=== PATIENT | female | born 1970 | race Caucasian/White ===

== ENCOUNTER → 2019-10-29 | Outpatient (REF) ==
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
== END ==
LOC: OCC 14:34
PROVIDERS: ATTEND Nurse Practitioner Family
DX: S72.432A Displaced fracture of medial condyle of left femur, initial encounter for closed fracture (principal); X58.XXXA Exposure to other specified factors, initial encounter
CPT/HCPCS: 73562

== ENCOUNTER → 2019-11-01 | Outpatient (REF) ==
--- NOTE | 2019-11-01 15:23 | Diagnostic Imaging Report ---
EXAMINATION: Magnetic resonance imaging of the left knee without intravenous contrast DATE: November 01, 2019. COMPARISON: Left knee radiographs October 29, 2019. INDICATION: 49-year-old female, left knee pain after recent fall. TECHNIQUE: Multiplanar, multisequence non contrast enhanced MR imaging was accomplished. FINDINGS: MENISCI: There is signal in the medial meniscus not meeting MRI criteria for tear. The lateral meniscus is intact. LIGAMENTS AND TENDONS: The anterior cruciate ligament is intact. There is abnormal thickening and distortion of contour of the posterior cruciate ligament likely relating to a partial tear of the posterior cruciate ligament. There is thickening of the superficial component of the medial collateral ligament complex consistent with sequela of prior injury. There is no current tear of the medial collateral ligament complex. The iliotibial band, mid third lateral capsular ligament, fibular collateral ligament, biceps femoris tendon and conjoined tendon are intact. The quadriceps tendon and patella ligament are intact. JOINT: There is mild to moderate thinning of the cartilage of the lateral patellar facet. The medial and lateral compartment cartilage appears grossly intact. There is no knee joint effusion, prominent synovitis, or intra-articular body. BONE: There is unremarkable bone marrow signal. Specifically, negative for fracture, osteomyelitis, osteonecrosis, or marrow replacing process. BURSAE AND SOFT TISSUES: There is a small partially ruptured Mills's cyst. There is nonspecific prepatellar subcutaneous edema. IMPRESSION: 1. Intact medial and lateral meniscus. 2. Intact anterior cruciate ligament. Partial tear of the posterior cruciate ligament. 3. Remote prior injury of the medial collateral ligament. 4. Mild to moderate patellofemoral compartment osteoarthritis. No large knee joint effusion. 5. No acute fracture, bone contusion, or evidence of osteonecrosis. 6. Partially ruptured Mills's cyst. Dictated by: Dictated on workstation # [id number]
== END | disposition home or self-care (01) ==
LOC: OCC 12:23
PROVIDERS: ATTEND Nurse Practitioner Family
CPT/HCPCS: 73721

== ENCOUNTER → 2019-11-12 | Outpatient (CLI) | payer OTHER | LOC: ORTHO 08:42 | PROVIDERS: ATTEND Orthopaedic Surgery | DX: S83.412A Sprain of medial collateral ligament of left knee, initial encounter (principal); M13.862 Other specified arthritis, left knee; I10 Essential (primary) hypertension; E66.9 Obesity, unspecified; Z87.81 Personal history of (healed) traumatic fracture; Z72.0 Tobacco use; Z90.89 Acquired absence of other organs; Z98.890 Other specified postprocedural states | CPT/HCPCS: 99203 ==

== ENCOUNTER 2019-12-18 19:56 | Observation (INO) | payer SELFPAY ==
[~2019-12-18] VITALS: Ht 152 cm; Wt 88.4 kg
[2019-12-18] VITALS (7 sets, daily range): BP systolic 132–153; BP diastolic 75–98
[2019-12-18] MEDS ORDERED: LACTATED RINGERS 1,000 ML IV ONE (20:30)
[2019-12-18 20:38] LABS: BASOPHILS % (AUTO) 1 % (0-10); EOSINOPHILS # (AUTO) 0.2 10^3/uL (0.0-0.3); EOSINOPHILS % (AUTO) 2 % (0-10); HEMATOCRIT 38 % (35-52); HEMOGLOBIN 12.7 G/DL (11.5-16.0); LYMPHOCYTES # (AUTO) 4.8 X 10^3 (1.0-4.0); LYMPHOCYTES % (AUTO) 58 % (12-44); MEAN CORPUSCULAR HEMOGLOBIN 33 PG (25-34); MEAN CORPUSCULAR HGB CONC 33 G/DL (32-36); MEAN CORPUSCULAR VOLUME 98 FL (80-99); MEAN PLATELET VOLUME 8.8 FL (7.4-10.4); MONOCYTES # (AUTO) 0.3 X 10^3 (0.0-1.0); MONOCYTES % (AUTO) 4 % (0-12); NEUTROPHILS # (AUTO) 2.9 X 10^3 (1.8-7.8); NEUTROPHILS % (AUTO) 35 % (42-75); PLATELET COUNT 363 10^3/uL (130-400); RED CELL DISTRIBUTION WIDTH 12.9 % (10.0-14.5); WHITE BLOOD COUNT 8.3 10^3/uL (4.3-11.0)
--- NOTE | 2019-12-18 20:42 | ED Psychosocial ---
General Chief Complaint: Suicidal Ideation Risk Stated Complaint: SI Source: patient (EXTREMELY DIFFICULT HISTORIAN) Exam Limitations: intoxication History of Present Illness Date Seen by Provider: Dec 18, 2019 Time Seen by Provider: 20:18 Initial Comments PT ARRIVES VIA EMS FROM HOME--PT AMBULATES INTO ER FROM THE AMBULANCE ON HER OWN, WITHOUT DIFFICULTY, LAUGHING AND SMILING AND TALKING. PT STATES "I DIDN'T WANT TO COME TO THE EMERGENCY ROOM" STATES "I TALKED TO MY THERAPIST TODAY" --PT STATES THAT HER THERAPIST CALLED EMS PT STATES "I TOLD HER I HADN'T BEEN SOBER, AND SHE TOLD ME I NEEDED MEDICAL DETOX, AND SHE CALLED SOMEONE AND THEY COULDN'T GET ME IN BECAUSE OF THE COVID STUFF, SO THEN I SAID SCREW IT-I'LL JUST END IT NOW, AND I TOLD HER I WAS GOING TO TAKE ALL THE MEDICINE I HAD AND ALL MY OLD MEDICINE--I'LL JUST END IT NOW" THEN THERAPIST CALLED EMS, ACCORDING TO PT. PT IS NOT VOICING THOSE THREATS AT THIS TIME, AND DOES NOT MENTION ANY OTHER SUICIDAL THOUGHTS FOR REMAINDER OF STAY. PT STATES SHE HAS LONGSTANDING ALCOHOL ABUSE AND DRINKS AT LEAST A FIFTH OF HARD LIQUOR A DAY, INCLUDING TODAY STATES SHE WAS IN [facility] LAST SUMMER FOR ALCOHOL ABUSE, AND GOT OUT AROUND , AND THEN [facility] AND WAS THERE UNTIL AUGUST 28, 2019. STATES SHE WAS SOBER FOR ABOUT 6 MONTHS, BUT THEN IMMEDIATELY STARTED DRINKING AGAIN, LITERALLY THE MINUTE SHE GOT OUT OF [facility]" AND HAS CONTINUED TO DRINK EVERY DAY SINCE THEN PCP: [facility] Allergies and Home Medications Allergies Coded Allergies: Penicillins (Verified Allergy, Unknown, 12/18/19) Patient Home Medication List Home Medication List Reviewed: Yes Review of Systems Constitutional: no symptoms reported EENTM: no symptoms reported Respiratory: no symptoms reported Cardiovascular: no symptoms reported Gastrointestinal: no symptoms reported Genitourinary: no symptoms reported : No (LMP 5-6 YEARS AGO) Control/STD Prophylaxis: None Musculoskeletal: no symptoms reported Skin: no symptoms reported Psychiatric/Neurological: See HPI Past [id number] Hx Patient Social History Alcohol Use: Regular Use (1/5 OR MORE OF HARD LIQUOR A DAY) Alcohol Beverage of Choice: Other (HARD LIQUOR) Recreational Drug Use: Yes (THC) Drug of Choice: THC Smoking Status: Current Everyday Smoker (1 PPD) Type Used: Cigarettes (1 PPD) Past Medical History Surgeries: No Respiratory: No Cardiac: Yes (WAS ON BP MEDICATION WHILE IN [facility]-NOT FOLLOWED UP WITH ANYONE SINCE) Hypertension Neurological: No DIRECTOR OF REHABILITATIVE SERVICES History: Menopausal Genitourinary: No Gastrointestinal: No Musculoskeletal: No Endocrine: No HEENT: No Cancer: No Psychosocial: Yes (SUBSTANCE ABUSE) Integumentary: No Blood Disorders: No Physical Exam Capillary Refill : Height, Weight, BMI Height: '" Weight: lbs. oz. kg; BMI Method: General Appearance: WD/WN, no apparent distress, other (SMILING, TALKS NON- STOP. SPEECH SLIGHTLY SLURRED. ) HEENT: PERRL/EOMI Neck: normal inspection Respiratory: normal breath sounds, no respiratory distress, no accessory muscle use Cardiovascular: regular rate, rhythm, no murmur Gastrointestinal: non tender, soft Extremities: normal inspection, normal capillary refill Neurologic/Psychiatric: talent acquisition project manager II-XII nml as tested, no motor/sensory deficits, alert, normal mood/affect, oriented x 3 Appearance/Memory: no memory impairment Behavior/Eye Contact: cooperative Thoughts/Hallucinations: no apparent hallucination Skin: normal color, warm/dry, other (NO EXTERNAL EVIDENCE OF TRAUMA) Progress/Results/Core Measures Results/Orders Lab Results Laboratory Tests Test 12/18/19 20:25 12/18/19 20:39 Range/Units White Blood Count 8.3 4.3-11.0 10^3/uL Red Blood Count 3.88 L 4.35-5.85 10^6/uL Hemoglobin 12.7 11.5-16.0 G/DL Hematocrit 38 35-52 % Mean Corpuscular Volume 98 80-99 FL Mean Corpuscular Hemoglobin 33 25-34 PG Mean Corpuscular Hemoglobin Concent 33 32-36 G/DL Red Cell Distribution Width 12.9 10.0-14.5 % Platelet Count 363 130-400 10^3/uL Mean Platelet Volume 8.8 7.4-10.4 FL Neutrophils (%) (Auto) 35 L 42-75 % Lymphocytes (%) (Auto) 58 H 12-44 % Monocytes (%) (Auto) 4 0-12 % Eosinophils (%) (Auto) 2 0-10 % Basophils (%) (Auto) 1 0-10 % Neutrophils # (Auto) 2.9 1.8-7.8 X 10^3 Lymphocytes # (Auto) 4.8 H 1.0-4.0 X 10^3 Monocytes # (Auto) 0.3 0.0-1.0 X 10^3 Eosinophils # (Auto) 0.2 0.0-0.3 10^3/uL Basophils # (Auto) 0.0 0.0-0.1 10^3/uL Sodium Level 146 H 135-145 MMOL/L Potassium Level 3.6 3.6-5.0 MMOL/L Chloride Level 117 H 98-107 MMOL/L Carbon Dioxide Level 18 L 21-32 MMOL/L Anion Gap 11 5-14 MMOL/L Blood Urea Nitrogen 11 7-18 MG/DL Creatinine 0.79 0.60-1.30 MG/DL Estimat Glomerular Filtration Rate > 60 BUN/Creatinine Ratio 14 Glucose Level 89 70-105 MG/DL Calcium Level 7.6 L 8.5-10.1 MG/DL Corrected Calcium 7.7 L 8.5-10.1 MG/DL Magnesium Level 2.2 1.6-2.4 MG/DL Total Bilirubin 0.1 0.1-1.0 MG/DL Aspartate Amino Transf (AST/SGOT) 15 5-34 U/L Alanine Aminotransferase (ALT/SGPT) 13 0-55 U/L Alkaline Phosphatase 61 40-136 U/L Total Protein 6.4 6.4-8.2 GM/DL Albumin 3.9 3.2-4.5 GM/DL Amylase Level 56 25-125 U/L Lipase 54 8-78 U/L TSH [place] Testing 2.48 0.35-4.94 UIU/ML Serum Test, Qualitative NEGATIVE NEGATIVE Salicylates Level < 5.0 L 5.0-20.0 MG/DL Acetaminophen Level < 10 L 10-30 UG/ML Serum Alcohol 321 *H <10 MG/DL Urine Color YELLOW Urine Clarity CLEAR Urine pH 6.0 5-9 Urine Specific [place] 1.010 L 1.016-1.022 Urine Protein NEGATIVE NEGATIVE Urine Glucose (UA) NEGATIVE NEGATIVE Urine Ketones NEGATIVE NEGATIVE Urine Nitrite NEGATIVE NEGATIVE Urine Bilirubin NEGATIVE NEGATIVE Urine Urobilinogen 0.2 < = 1.0 MG/DL Urine Leukocyte Esterase 1+ H NEGATIVE Urine RBC (Auto) NEGATIVE NEGATIVE Urine RBC NONE /HPF Urine WBC 5-10 H /HPF Urine Squamous Epithelial Cells 5-10 /HPF Urine Crystals NONE /LPF Urine Bacteria TRACE /HPF Urine Casts NONE /LPF Urine Mucus NEGATIVE /LPF Urine Culture Indicated NO Urine Opiates Screen NEGATIVE NEGATIVE Urine Oxycodone Screen NEGATIVE NEGATIVE Urine Methadone Screen NEGATIVE NEGATIVE Urine Propoxyphene Screen NEGATIVE NEGATIVE Urine Barbiturates Screen NEGATIVE NEGATIVE Ur Tricyclic Antidepressants Screen NEGATIVE NEGATIVE Urine Phencyclidine Screen NEGATIVE NEGATIVE Urine Amphetamines Screen NEGATIVE NEGATIVE Urine Methamphetamines Screen NEGATIVE NEGATIVE Urine Benzodiazepines Screen NEGATIVE NEGATIVE Urine Cocaine Screen NEGATIVE NEGATIVE Urine Cannabinoids Screen NEGATIVE NEGATIVE My Orders Orders - COCO MARQUEZA K DO Urinalysis (12/18/19 20:30) Thyroid Analyzer (12/18/19 20:30) Drug Screen Stat (Urine) (12/18/19 20:30) Cbc With Automated Diff (12/18/19 20:30) Comprehensive Metabolic Panel (12/18/19 20:30) Amylase (12/18/19 20:30) Alcohol (12/18/19 20:30) Acetaminophen (12/18/19 20:30) Salicylate (12/18/19 20:30) Ekg Tracing (12/18/19 20:30) Hcg,Qualitative Serum (12/18/19 20:30) Lipase (12/18/19 20:30) Magnesium (12/18/19 20:30) Ed Iv/Invasive Line Start (12/18/19 20:30) Lactated Ringers (Lr 1000 Ml Iv Solution (12/18/19 20:30) Medications Given in ED Current Medications Medications Dose Ordered Sig/Song Route Start Time Stop Time Status Last Admin Dose Admin Lactated Ringer's 1,000 ml @ 0 mls/hr Q0M ONCE IV 12/18/19 20:30 12/18/19 20:33 DC 12/18/19 21:20 1,000 MLS/HR Progress Progress Note : Progress Note UNEVENTFUL ER STAY PT REMAINED CALM AND COOPERATIVE THROUGHOUT ER STAY, WITHOUT ANY COMPLAINTS Initial ECG Impression Date: Dec 18, 2019 Initial ECG Impression Time: 20:18 Initial ECG Rate: 91 Initial ECG Rhythm: Normal Sinus Initial ECG Comparisson: No Previous ECG Available Departure Communication (Admissions) [id number]--SPOKE WITH DR. HINTON, HOSPITALIST SORTER LUMBER STRAIGHTENER FOR [facility], ACCEPTS PT FOR ADMIT. Impression Primary Impression: Passive suicidal ideations Additional Impression: Alcohol intoxication in active alcoholic Disposition: ADMITTED INPATIENT Condition: Stable Admissions Decision to Admit Reason: Admit from ER (General) Decision to Admit/Date: Dec 18, 2019 Time/Decision to Admit Time: 21:15 Departure-Patient Inst. Referrals: WINSTON LUIS (PCP/Family) Primary Care Physician Patient Instructions: [facility] ROBBY MARQUEZ DO Dec 18, 2019 20:42
[2019-12-18 20:45] LABS: BILIRUBIN,URINE NEGATIVE (NEGATIVE); CLARITY,URINE CLEAR; COLOR,URINE YELLOW; GLUCOSE, URINE (UA) NEGATIVE (NEGATIVE); KETONES,URINE NEGATIVE (NEGATIVE); LEUKOCYTE ESTERASE ,URINE 1+ (NEGATIVE); NITRITE,URINE NEGATIVE (NEGATIVE); PROTEIN,URINE NEGATIVE (NEGATIVE)
--- OUTSIDE RECORDS SUMMARY | 2019-12-18 20:56 | XMS REPORT ---
Author Pasquale Kenney Organization [employer] Address Unknown Phone Unavailable Care Team Providers Care Soldering Machine Setter Name Role Phone Ban Culver CP Unavailable Allergies, Adverse Reactions, Alerts Substance Reaction Event Type Penicillin G Benzathine Info Not Available Drug Allergy Problems Problem Type Condition ICD-9 Code Onset Dates Condition Statu s Problem Acute bronchitis 466.0 Active Problem Health examination of defined subpopulation V70.5 Active Problem Premenstrual tension syndromes 625.4 Active Assessment Screening examination for pulmonary tuberculosis V74.1 Active Problem Throat pain 784.1 Active Assessment Premenstrual tension syndromes 625.4 Active Medications Medication Code System Code Instructions Start Date End Date Status Dosage Prilosec [facility] [address]-03 40 MG Orally Once a day 1 capsule Claritin [facility] [address]-71 10 MG Orally Once a day 1 tablet Prozac [facility] [address]-25 40 MG Orally Once a day 1 capsule in the morning Procedures Procedure Coding System Code Date Tuberculin CPT-4 41583 February 03, 2015 Vital Signs Date/Time: February 03, 2015 BMI 31.74 Index Weight 170lb 12oz lbs Height 61.5 in Blood Pressure Diastolic 79 mm Hg Blood Pressure Systolic 127 mm Hg Temperature 97.9 F Cardiac Monitoring Heart Rate 83 /min Results No Known Results Summary Purpose [employer] Submission
--- OUTSIDE RECORDS SUMMARY | 2019-12-18 20:56 | XMS REPORT ---
Author Author Pasquale Lares Organization [employer] Address Unknown Phone Unavailable Care Team Providers Care Network Systems Analyst Name Role Phone Foreign Lares CP Unavailable Allergies, Adverse Reactions, Alerts Substance Reaction Event Type Penicillin G Benzathine Info Not Available Drug Allergy Problems Problem Type Condition Code Onset Dates Condition Statu s Problem Acute bronchitis 466.0 Active Problem Health examination of defined subpopulation V70.5 Active Problem Premenstrual tension syndromes 625.4 Active Assessment Other mixed anxiety disorders F41.3 Active Assessment Gastro-esophageal reflux disease with esophagitis K21. 0 Active Problem Throat pain 784.1 Active Assessment Idiopathic urticaria L50.1 Active Medications Medication Code System Code Instructions Start Date End Date Status Dosage Claritin [facility] [address]-67 10 MG Orally Once a day 1 tablet HydrOXYzine Pamoate [facility] [address]-08 50 MG Orally every 6 hrs Jul 1 capsule as needed Prozac [facility] [address]-59 40 MG Orally Once a day 1 capsule in the morning Prilosec [facility] [address]-96 40 MG Orally Once a day 1 capsule Procedures Procedure Coding System Code Date DEPO-MEDROL 80MG/ML CPT-4 J1030 Aug 01, 2015 Office Visit, Est Pt., Level 4 CPT-4 25520 D 2014 Vital Signs Date/Time: Aug 01, 2015 BMI 34.46 Index Weight 185.4 lbs Height 61.5 in Blood Pressure Diastolic 78 mm Hg Blood Pressure Systolic 114 mm Hg Temperature 99.1 F Cardiac Monitoring Heart Rate 88 /min Results No Known Results Summary Purpose [employer] Submission
--- OUTSIDE RECORDS SUMMARY | 2019-12-18 20:56 | XMS REPORT | Referral Summary ---
Author Author [facility] Organization [facility] Address Unknown Phone Unavailable Care Team Providers Care Punch Hand Name Role Phone [facility] PCP Unavail able Encounter VC Date(s): 02/06/19 - 02/06/19 [facility] [address] [place] [address] Encounter Diagnosis Acute UTI (Discharge Diagnosis) - 02/06/19 Elevated blood pressure reading (Discharge Diagnosis) - 02/06/19 Discharge Disposition: 01-Home or Self Care Attending Physician: Chikis Scott DO Admitting Physician: Chikis Scott DO Vital Signs Most recent to 1 oldest [Reference Range]: Temperature Oral 37.0 degC [35.8-37.3 degC] (02/06/19 11:19 AM) Peripheral Pulse 86 bpm Rate [60-100 bpm] (02/06/19 3:34 PM) Heart Rate Monitored 81 bpm [60-100 bpm] (02/06/19 3:02 PM) Respiratory Rate 18 br/min [14-20 br/min] (02/06/19 3:34 PM) Blood Pressure 173/94 mmHg [90-140/60-90 mmHg] *HI* (02/06/19 3:34 PM) Mean Arterial 121 mmHg Pressure, Cuff (02/06/19 3:02 PM) SpO2 98 % (02/06/19 3:34 PM) Problem List Condition Effective Dates Status Health Status Informan t Tobacco Active patient user(Confirmed) No Chronic Problems Active Allergies, Adverse Reactions, Alerts Substance Reaction Severity Status penicillin rash Active Lortab Hives Active Medications Crutches (DME) DME Item 4 months, See Instructions, # 1 Each, 0 Refill(s), Supply Start Date: 01/29/19 Status: Ordered hydroCHLOROthiazide 12.5 mg oral capsule 12.5 mg 1 caps, Oral, Daily, # 7 caps, 0 Refill(s) Start Date: 02/06/19 Status: Ordered ibuprofen 800 mg oral tablet 1 tabs, Oral, TID, as needed for pain, # 30 tabs, 0 Refill(s) Start Date: 08/07/14 Status: Ordered Macrobid 100 mg oral capsule 100 mg 1 caps, Oral, BID, X 7 days, # 14 caps, 0 Refill(s) Start Date: 02/06/19 Stop Date: 02/13/19 Status: Ordered Zofran ODT 4 mg oral tablet, disintegrating 1 tabs, Oral, q6hr, as needed for nausea/vomiting, # 10 tabs, 0 Refill(s) Start Date: 08/07/14 Status: Ordered Results Most recent to 1 oldest [Reference Range]: WBC [4.8-10.8 5.0 10*3/uL 10*3/uL] (02/06/19 1:12 PM) RBC [4.00-5.20] 3.66 *LOW* (02/06/19 1:12 PM) BUN [4-20 mg/dL] 12 mg/dL (02/06/19 1:12 PM) UA Color Yellow (02/06/19 1:12 PM) UA WBC [0-4 /HPF] >50 /HPF *ABN* (02/06/19 1:12 PM) Type Clean Catch (02/06/19 1:12 PM) Troponin [<0.06 <0.05 ng/mL ng/mL] (02/06/19 1:12 PM) Glucose Lvl [70-100 112 mg/dL mg/dL] *HI* (02/06/19 1:12 PM) Potassium Lvl 3.9 mEq/L [3.6-5.1 mEq/L] (02/06/19 1:12 PM) MCV [82.0-99.0 fL] 99.7 fL *HI* (02/06/19 1:12 PM) UA Urobilinogen Negative [<1.0] (02/06/19 1:12 PM) UA Bili [Negative] Negative (02/06/19 1:12 PM) UA Ketones Negative [Negative] (02/06/19 1:12 PM) AST [15-41 U/L] 38 U/L (02/06/19 1:12 PM) ALT [14-54 U/L] 55 U/L *HI* (02/06/19 1:12 PM) MCHC [32.0-36.0 32.3 gm/dL gm/dL] (02/06/19 1:12 PM) Sodium Lvl [136-144 141 mEq/L mEq/L] (02/06/19 1:12 PM) UA RBC [0-2] 20-50 *ABN* (02/06/19 1:12 PM) UA Leuk Est Pos 3+ [Negative] *ABN* (02/06/19 1:12 PM) UA Nitrite Negative [Negative] (02/06/19 1:12 PM) UA Glucose Negative [Negative] (02/06/19 1:12 PM) Hct [37.0-47.0 %] 36.5 % *LOW* (02/06/19 1:12 PM) UA Bacteria [None Occasional Seen-Rare] *ABN* (02/06/19 1:12 PM) Calcium Lvl 8.9 mg/dL [8.6-10.0 mg/dL] (02/06/19 1:12 PM) Albumin Lvl [3.5-4.8 3.7 gm/dL gm/dL] (02/06/19 1:12 PM) Total Protein 6.4 gm/dL [6.1-7.9 gm/dL] (02/06/19 1:12 PM) UA Protein Negative [Negative] (02/06/19 1:12 PM) MCH [27.0-32.0 pg] 32.2 pg *HI* (02/06/19 1:12 PM) Bili Total [0.2-1.2 0.8 mg/dL 1 mg/dL] (02/06/19 1:12 PM) Hgb [12.0-16.0 11.8 gm/dL gm/dL] *LOW* (02/06/19 1:12 PM) Alk Phos [26-104 51 U/L U/L] (02/06/19 1:12 PM) UA Blood [Negative] Pos 1+ *ABN* (02/06/19 1:12 PM) MPV [9.4-12.4 fL] 10.0 fL (02/06/19 1:12 PM) UA Mucous Present (02/06/19 1:12 PM) UA Spec Grav 1.020 [1.003-1.030] (02/06/19 1:12 PM) Platelet [150-400 266 10*3/uL 10*3/uL] (02/06/19 1:12 PM) Chloride [99-109 107 mEq/L mEq/L] (02/06/19 1:12 PM) CO2 [22-32 mEq/L] 23 mEq/L (02/06/19 1:12 PM) AGAP [3-20 mEq/L] 11 mEq/L (02/06/19 1:12 PM) RDW [11.5-14.5 %] 13.4 % (02/06/19 1:12 PM) UA pH [5.0-8.0] 5.0 (02/06/19 1:12 PM) UA Appear Cloudy *ABN* (02/06/19 1:12 PM) eGFR [>60 mL/min] >60 mL/min 2 (02/06/19 1:12 PM) Globulin [1.9-4.3 2.7 gm/dL gm/dL] (02/06/19 1:12 PM) Epithelial Cells 5-10 [0-5] *ABN* (02/06/19 1:12 PM) Creatinine Lvl 0.76 mg/dL [0.44-1.03 mg/dL] (02/06/19 1:12 PM) 1Result Comment: Naproxen, specifically the metabolite O-desmethylnaproxen, may cause spurious elevation in Total Bilirubin levels. 2Result Comment: Multiply eGFR results by 1.21 for race. Immunizations No data available for this section Procedures No data available for this section Social History Social History Type Response Smoking Status Current some day smoker; Ty pe: E-Cigarette entered on: 07/06/15 Assessment and Plan No data available for this section
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
[2019-12-18 20:57] LABS: AMPHETAMINE SCREEN, URINE NEGATIVE (NEGATIVE); BARBITURATE SCREEN URINE NEGATIVE (NEGATIVE); BENZODIAZEPINES SCREEN URINE NEGATIVE (NEGATIVE); CANNABINOID SCREEN, URINE NEGATIVE (NEGATIVE); COCAINE SCREEN URINE NEGATIVE (NEGATIVE); METHADONE STAT NEGATIVE (NEGATIVE); METHAMPHETAMINE SCREEN URINE S NEGATIVE (NEGATIVE); OPIATE SCREEN URINE NEGATIVE (NEGATIVE); OXYCODONE STAT NEGATIVE (NEGATIVE); PROPOXYPHENE STAT NEGATIVE (NEGATIVE); TRICYCLIC ANTIDEPRESSANTS SCRE NEGATIVE (NEGATIVE)
[2019-12-18 20:57] LABS: ALANINE AMINOTRANSFERASE 13 U/L (0-55); ALBUMIN 3.9 GM/DL (3.2-4.5); ALKALINE PHOSPHATASE 61 U/L (40-136); AMYLASE 56 U/L (25-125); BILIRUBIN,TOTAL 0.1 MG/DL (0.1-1.0); BUN/CREATININE RATIO 14; CALCIUM 7.6 MG/DL (8.5-10.1); CARBON DIOXIDE 18 MMOL/L (21-32); CHLORIDE 117 MMOL/L (98-107); CREATININE SERUM 0.79 MG/DL (0.60-1.30); GFR ESTIMATED > 60; GLUCOSE 89 MG/DL (70-105); LIPASE 54 U/L (8-78); MAGNESIUM 2.2 MG/DL (1.6-2.4); POTASSIUM 3.6 MMOL/L (3.6-5.0); SALICYLATE < 5.0 MG/DL (5.0-20.0); SODIUM 146 MMOL/L (135-145); TOTAL PROTEIN 6.4 GM/DL (6.4-8.2)
[2019-12-18 21:07] LABS: ACETAMINOPHEN < 10 UG/ML (10-30)
[2019-12-18 21:14] LABS: BACTERIA,URINE TRACE /HPF
[2019-12-18 21:17] LABS: TSH (THYROID ANALYZER) 2.48 UIU/ML (0.35-4.94)
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
--- NOTE | 2019-12-18 22:09 | NUR ---
pt denies any suicidal ideation at this time
[2019-12-18] MEDS ORDERED: LORazepam 1 MG (ATIVAN) TAB PO PRN (23:00)
[2019-12-18] MEDS ORDERED: SENNA W/DOCUSATE (SENOKOT S) TABLET PO PRN (23:00)
[2019-12-18] MEDS ORDERED: 1/2 NS IV SOLUTION 1,000 ML IV PRN (23:00)
[2019-12-18] MEDS ORDERED: LORazepam INJ 2 MG/ML (ATIVAN) VIAL IV PRN (23:00)
[2019-12-18] MEDS ORDERED: D5 1/2 NS 1000 ML IV SOLUTION 1,000 ML IV PRN (23:00)
[2019-12-18] MEDS ORDERED: ANTACID SUSP 30 ML UDC (MYLANTA) PO PRN (23:00)
[2019-12-18] MEDS ORDERED: ONDANSETRON 4 MG/2 ML (SDV) Z0FRAN IV PRN (23:00)
[2019-12-18] MEDS ORDERED: ONDANSETRON 4 MG (ZOFRAN) ORAL DISSOLVE TAB SL PRN (23:00)
[2019-12-18] MEDS ORDERED: LORazepam INJ 2 MG/ML (ATIVAN) VIAL IM/IV PRN (23:00)
[2019-12-18] MEDS: D5 1/2 NS W/KCL 20 MEQ/L 1,000 ML IV SCH (23:33)
[2019-12-19] MEDS ORDERED: IBUPROFEN TABLET 200 MG TAB PO PRN (01:45)
[2019-12-19 03:24] LABS: BASOPHILS % (AUTO) 1 % (0-10); EOSINOPHILS # (AUTO) 0.1 10^3/uL (0.0-0.3); EOSINOPHILS % (AUTO) 3 % (0-10); HEMATOCRIT 35 % (35-52); HEMOGLOBIN 11.3 G/DL (11.5-16.0); LYMPHOCYTES # (AUTO) 3.2 X 10^3 (1.0-4.0); LYMPHOCYTES % (AUTO) 57 % (12-44); MEAN CORPUSCULAR HEMOGLOBIN 32 PG (25-34); MEAN CORPUSCULAR HGB CONC 33 G/DL (32-36); MEAN CORPUSCULAR VOLUME 99 FL (80-99); MEAN PLATELET VOLUME 8.9 FL (7.4-10.4); MONOCYTES # (AUTO) 0.3 X 10^3 (0.0-1.0); MONOCYTES % (AUTO) 5 % (0-12); NEUTROPHILS % (AUTO) 35 % (42-75); PLATELET COUNT 338 10^3/uL (130-400); WHITE BLOOD COUNT 5.7 10^3/uL (4.3-11.0)
[2019-12-19 03:34] LABS: ALBUMIN 3.3 GM/DL (3.2-4.5); CHLORIDE 114 MMOL/L (98-107); POTASSIUM 3.5 MMOL/L (3.6-5.0); SODIUM 143 MMOL/L (135-145)
[2019-12-19 03:35] LABS: CALCIUM 7.5 MG/DL (8.5-10.1)
[2019-12-19 03:36] LABS: GLUCOSE 122 MG/DL (70-105)
[2019-12-19 03:37] LABS: CARBON DIOXIDE 19 MMOL/L (21-32); TOTAL PROTEIN 5.5 GM/DL (6.4-8.2)
[2019-12-19 03:38] LABS: BILIRUBIN,TOTAL 0.1 MG/DL (0.1-1.0)
[2019-12-19 03:40] LABS: ALKALINE PHOSPHATASE 56 U/L (40-136); CREATININE SERUM 0.69 MG/DL (0.60-1.30); GFR ESTIMATED > 60
[2019-12-19 03:41] LABS: BUN/CREATININE RATIO 16
[2019-12-19 03:43] LABS: ALANINE AMINOTRANSFERASE 11 U/L (0-55)
[2019-12-19 03:45] VITALS: BP 140/84
[2019-12-19] MEDS: D5 1/2 NS W/KCL 20 MEQ/L 1,000 ML IV SCH (05:42)
[2019-12-19 08:00] VITALS: BP 144/93
[2019-12-19] MEDS ORDERED: THIAMINE INJECTION 100 MG, FOLIC ACID INJECTION 1 MG, MAGNESIUM SULFATE 2 GM, VITAMIN M... IV SCH ×10 (09:00)
[2019-12-19] MEDS ORDERED: IBUP-2473 PO (09:11)
[2019-12-19] MEDS ORDERED: TOPI50TA37 PO ×2 (09:11)
[2019-12-19] MEDS ORDERED: DULO60CA6 PO (09:11)
[2019-12-19] MEDS ORDERED: OMEP20TA7 PO (09:11)
[2019-12-19] MEDS ORDERED: MIRT15TA PO (09:11)
--- NOTE | 2019-12-19 09:13 | NUR ---
SPOKE WITH THE PT TO COMPLETE THE MED REC PT HAD HER MEDS WITH HER (I ALERTED THE NURSE REYNA) AND THEY ARE DISPENSED THROUGH [facility] 11-28-2019 DULOXETINE 60MG #30/30DS 11-28-2019 MIRTAZAPINE 15MG #30 (THE PT SAID SHE ONLY TAKES PRN BUT THE DIRECTIONS WRITTEN ON THE BOTTLE DONT INDICATE TO USE PRN) 11-28-2019 TOPAMAX 50MG #63/28DS (THE DIRECTIONS ARE A STEP UP THERAPY. 1 TAB DAILY X 7 DAYS, THEN 2 TABS DAILY X 7DAYS, THEN 1 TAB AND 2 TABS HS THEREAFTER- THE PT IS CURRENTLY ON THE LAST SET OF INSTRUCTIONS) OTC MEDS: OMEPRAZOLE IBUPROFEN 200MG- THE PT SAYS SHE TAKES 4 TABS TO EQUAL 800MG THREE TIMES A DAY. I ASKED IF THIS WAS NEEDED OR DID SHE TAKE IT SCHEDULED. PT INDICATED SHE TAKES THAT DOSE EVERY DAY
--- NOTE | 2019-12-19 09:30 | Short Stay Summary-Hospitalist ---
History of Present Illness HPI/Chief Complaint CC: ETOH intoxication with suicidal statements now resolved HPI: This is a 49yoWF clinic patient of [facility] who presented to the ER after she told her counselor she wants to commit suicide but she was intoxicated at that time and now denies she stated that. SW consulted and it appears she has services available to her which she will access and get back on track with alcohol intoxication. Source: patient Exam Limitations: no limitations Date Seen 12/19/19 Time Seen by a Provider: 09:30 Attending Physician Rosana Menon DO PCP Bandar Wilson Referring Physician Date of Admission Dec 18, 2019 at 21:15 Home Medications & Allergies Home Medications Reviewed patient Home Medication Reconciliation performed by pharmacy medication reconciliations resident care technician and/or nursing. Patients Allergies have been reviewed. Allergies Allergies Coded Allergies Penicillins (Verified Allergy, Unknown, 12/18/19) Past Mbhunxt-Tqlbpo-Ggnibh Hx Past Med/Social Hx: Reviewed Nursing Past Med/Soc Hx, Reviewed and Corrections made Patient Social History Marrital Status: single Employed/Student: unemployed Alcohol Use: Regular Use (1/5 OR MORE OF HARD LIQUOR A DAY) Alcohol Beverage of Choice: Other (HARD LIQUOR) Recreational Drug Use: Yes (THC) Drug of Choice: THC Smoking Status: Current Everyday Smoker (1 PPD) Type Used: Cigarettes (1 PPD) Recent Foreign Travel: No Contact w/other who traveled: No Recent Hopitalizations: No Recent Infectious Disease Expo: No Seasonal Allergies Seasonal Allergies: No Past Medical History Surgeries: Adenoidectomy, Tonsillectomy Cardiac: Hypertension Neurological: Headaches /Migraines : No Menopausal Psychosocial: Depression History of Blood Disorders: No Review of Systems Constitutional: see HPI Physical Exam Physical Exam Vital Signs Vital Signs - First Documented 12/18/19 12/18/19 19:58 22:06 Temp 36.8 Pulse 100 Resp 20 B/P (MAP) 125/81 (96) Pulse Ox 97 O2 Delivery Room Air Capillary Refill : Less Than 3 Seconds Height, Weight, BMI Height: '" Weight: lbs. oz. kg; 38.26 BMI Method: General Appearance: No Apparent Distress, WD/WN Eyes: Bilateral Eye Normal Inspection, Bilateral Eye PERRL HEENT: PERRL/EOMI, TMs Normal, Normal ENT Inspection, Pharynx Normal Neck: Full Range of Motion, Normal Inspection, Non Tender, Supple, Carotid Bruit Respiratory: Chest Non Tender, Lungs Clear, Normal Breath Sounds, No Accessory Muscle Use, No Respiratory Distress Cardiovascular: Regular Rate, Rhythm, No Edema, No Gallop, No JVD, No Murmur, Normal Peripheral Pulses Gastrointestinal: Normal Bowel Sounds, No Organomegaly, No Pulsatile Mass, Non Tender, Soft Back: Normal Inspection, No CVA Tenderness, No Vertebral Tenderness Extremity: Normal Capillary Refill, Normal Inspection, Normal Range of Motion, Non Tender, No Calf Tenderness, No Pedal Edema Neurologic/Psychiatric: Alert, Oriented x3, No Motor/Sensory Deficits, Normal Mood/Affect Skin: Normal Color, Warm/Dry Lymphatic: No Adenopathy Results Results/Procedures Labs Laboratory Tests 12/18/19 20:25 12/19/19 03:12 Patient resulted labs reviewed. Short Stay Diagnosis Discharge Diagnosis-Short Stay Admission Diagnosis ETOH intoxication Suicidal statements Final Discharge Diagnosis ETOH intoxication Suicidal statements Conclusion Plan DC home Diagnosis/Problems Diagnosis/Problems (1) Alcohol intoxication in active alcoholic Status: Acute (2) Passive suicidal ideations Status: Acute Clinical Quality Measures DVT/VTE Risk/Contraindication: Risk Factor Score Per Nursin RFS Level Per Nursing on Admit: 3=High ROSANA MENON DO Dec 19, 2019 09:30
--- NOTE | 2019-12-19 11:30 | NUR ---
CM/SS: Visited with pt as to plan for discharge Plan: Pt will return home with utilizing her Outpatient Drug and Alcohol and Mental Health Services. Summary: Pt reports having been drinking alcohol since 12/12 and just reports that she is missing her children who live in [place]. Pt reports she is 49 years old, and had completed the program at [facility] in [place] and lived at the [facility] and left there in July. Pt report she knows what to do as far a staying clean and sober and knows that drinking alcohol does not help any of that. Pt reports she recently lost her job at [employer] based on being sick and missing work due to the alcohol use. Pt reports having talked with her Outpatient drug and alcohol counselor (Venus) as well as Deanna who manages her medication. She does not feel at this time she needs to reenter treatment, and she will continue to utilize outpatient services through [facility]. Pt request information about unemployment and prescription assistance. Dr Menon rounds and is updated on the plan that pt and this worker have discussed she is ok with that and plans to discharge pt on today. Pt is provided requested information. Pt is encouraged to get back on track. 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 She is encouraged to do well and to utilize her her supports that are in place. Pt verbalizes understanding.
== END 2019-12-19 11:01 | disposition home or self-care (01) ==
LOC: EDUNIT# 19:56 → ER 19:57 → ICU 21:15
PROVIDERS: ADMIT Internal Medicine; ATTEND Internal Medicine
DX: F10.129 Alcohol abuse with intoxication, unspecified (principal); R45.851 Suicidal ideations; I10 Essential (primary) hypertension; G43.909 Migraine, unspecified, not intractable, without status migrainosus; F32.9 Major depressive disorder, single episode, unspecified; F17.210 Nicotine dependence, cigarettes, uncomplicated; Z88.0 Allergy status to penicillin; Z90.89 Acquired absence of other organs
CPT/HCPCS: 36415; 80053; 80306; 80320; 80329; 81000; 82150; 83690; 83735; 84443; 84703; 85025; 93005

== ENCOUNTER → 2020-02-07 | Outpatient (CLI) | payer SELFPAY ==
[~2020-02-07] MED LIST: DULO60CA6 PO; IBUP-2473 PO; MIRT15TA PO; OMEP20TA7 PO; TOPI50TA37 PO
--- NOTE | 2020-02-07 16:02 | Diagnostic Imaging Report ---
PROCEDURE: MRI right joint lower extremity without contrast. TECHNIQUE: Multiplanar, multisequence non contrast-enhanced MRI of the right lower extremity was accomplished. INDICATION: Right knee injury a couple of weeks ago. COMPARISON: None. FINDINGS: No acute fracture is seen in the right knee. There is marked bone marrow edema in the medial tibial plateau. Alignment appears normal. Small marginal osteophytes are seen in the medial and lateral compartments. There is a small right knee joint effusion. The articular cartilage in the patellofemoral compartment demonstrates mild thinning and surface irregularity. The articular cartilage in the medial compartment demonstrates full-thickness cartilage loss at the weightbearing aspect. The cartilage in the lateral compartment demonstrates mild thinning with small button osteophytes. There is a radial tear at the posterior root of the medial meniscus. The lateral meniscus appears intact. The anterior and posterior cruciate ligaments are intact. The medial collateral ligament is bowed with surrounding edema, likely due to the underlying meniscal pathology. The lateral collateral ligamentous complex appears intact. The extensor mechanism is intact. The medial and lateral retinacula are intact. There is a small Mills's cyst. There is edema in and about the popliteus muscle. IMPRESSION: 1. Bone contusion of the medial tibial plateau with no fracture line seen. 2. Complete radial tear through the posterior root of the medial meniscus. 3. Low-grade strain of the popliteus muscle. 4. Small right knee joint effusion with a small leaking Mills's cyst. Dictated by: Dictated on workstation # [id number]
== END ==
LOC: RAD 14:30
PROVIDERS: ATTEND Physician Assistant
DX: M23.91 Unspecified internal derangement of right knee (principal); S80.11XA Contusion of right lower leg, initial encounter; S83.241A Other tear of medial meniscus, current injury, right knee, initial encounter; M25.461 Effusion, right knee; M71.21 Synovial cyst of popliteal space [Baker], right knee
CPT/HCPCS: 73721

== ENCOUNTER → 2020-05-08 | Outpatient (CLI) | payer SELFPAY ==
--- NOTE | 2020-05-08 10:47 | Diagnostic Imaging Report ---
PROCEDURE: MRI left joint lower extremity without contrast. TECHNIQUE: Multiplanar, multisequence non contrast-enhanced MRI of the left lower extremity was accomplished. INDICATION: Tripped and fell early this year. Continued pain. EXAMINATION: Left lower extremity MRI from 05/08/2020. Comparison made to 11/01/2019 FINDINGS: There is diffuse abnormal signal intensity throughout the medial tibial plateau with a vague T1 and T2 hypointense of linear finding in the subchondral aspect of the tibial plateau perhaps a small nondisplaced stress or insufficiency fracture. No displaced fractures are appreciated. These findings are new since previous examination. There is surrounding soft tissue edema. The MCL is intact although thickened consistent with an old injury. Surrounding edema could be reactive given the changes in the adjacent medial tibial plateau or could be due to a sprain of the MCL. The lateral collateral ligamentous complex is intact. The extensor mechanism is intact. ACL intact. There is abnormal signal intensity within the intrasubstance of the PCL similar to previous imaging and consistent with a partial tear. There is no discontinuity. There is diffuse abnormal signal intensity throughout the posterior horn of the medial meniscus slightly more pronounced than on previous imaging with a small tear suspected. The lateral meniscus is intact. There is a small joint effusion. There is heterogeneity cartilage along the cartilage overlying the patella moderate in appearance. The medial and lateral compartment cartilage appears intact. There is a small Mills cyst. IMPRESSION: 1. Abnormal signal intensity throughout the medial tibial plateau with findings either due to degenerative signal but given the change since previous imaging most likely due to insufficiency or stress fracture nondisplaced in nature. Adjacent soft tissue edema noted. 2. Sprain of the MCL versus surrounding edema reactive in nature. 3. Partial tear of the PCL similar to previous imaging. 4. Worsened appearance to the posterior horn of the medial meniscus likely a small tear. The lateral meniscus is intact. Dictated by: Dictated on workstation # [id number]
== END ==
LOC: RAD 09:10
PROVIDERS: ATTEND Nurse Practitioner
DX: S83.512A Sprain of anterior cruciate ligament of left knee, initial encounter (principal); M17.12 Unilateral primary osteoarthritis, left knee; W01.0XXA Fall on same level from slipping, tripping and stumbling without subsequent striking against object, initial encounter
CPT/HCPCS: 73721